=== PATIENT | female | born 1955 | race Caucasian/White ===

== ENCOUNTER 2019-10-22 02:34 | Emergency (ER) | payer MEDICARE, SELFPAY | END 2019-10-22 03:32 | disposition home or self-care (01) | PROVIDERS: Emergency Provider Emergency Medicine; Visit Provider Emergency Medicine | DX: M54.9 Dorsalgia, unspecified (principal); G89.29 Other chronic pain | CPT/HCPCS: J1885 ==

== ENCOUNTER 2020-02-09 02:45 | Emergency (ER) | payer MEDICARE, SELFPAY ==
--- NOTE | 2020-02-09 03:01 | ED_ITS ---
Entered by Natalie Scott, acting as scribe for Jeffrey Hirsch MD HPI - URI/Sore Throat General: Chief Complaint: Shortness of Breath/Dyspnea Stated Complaint: FLU SYMPTOMS Time Seen by Provider: 02/09/20 02:45 Source: patient Mode of arrival: ambulatory Limitations: no limitations History of Present Illness: HPI Narrative: 64 yo f came to the er pov for flu like symptoms. Onset was last friday. Pt states that she has a cough, fever, dizzy, headache and body aches. Pt said that she went to her doctors office and was tested for the flu and it was negative. She states she has had a continued nonproductive cough. Denies any vomiting. MD elicited complaint: fever, cough, sore throat and other Onset (ago): day(s) (last friday) Consistency: constant Severity: mild Able to tolerate fluids by mouth: Yes Exacerbating factors: nothing Relieving factors: nothing Context: sick contacts Associated symptoms: Reports chills, congestion, cough and fever(s); Deny abdominal pain, chest pain, diarrhea, headache(s), nausea or vomiting Treatments prior to arrival: none Review of Systems General: Reports: other (negative unless marked) Const: Reports: fever, chills and body aches Eyes: Denies: blurry vision or eye discomfort ENMT: Denies: throat pain or dental pain Card: Denies: chest pain Resp: Reports: non-productive cough GI: Denies: abdominal pain, nausea, vomiting or diarrhea : Denies: painful urination Musc: Denies: neck pain or back pain Skin/Breast: Denies: rash Neuro: Denies: headache Psych: Denies: depression [place]/Lymph: Denies: easy bruising All/Imm: Denies: hives PFSH ED PFSH: Social History Smoking and tobacco status: never smoked Physical Exam Const: COMMON NORMALS: no apparent distress, oriented x3 and healthy appearing HENMT: COMMON NORMALS: normocephalic and head/scalp atraumatic HEAD & SCALP: normocephalic and atraumatic Eye: COMMON NORMALS: PERRL and EOMs intact bilaterally PUPIL: Yes PERRL Neck/C-Spine: COMMON NORMALS: full ROM and supple Chest: COMMONS NORMALS: inspection of chest normal and palpation of chest normal Resp: COMMON NORMALS: normal respiratory effort, no retractions, no use of accessory muscles and clear to auscultation bilaterally AUSCULTATION: clear to auscultation bilaterally Cardio: COMMON NORMALS: regular rate, regular rhythm and no murmurs RATE: regular rate RHYTHM: regular rhythm GI: COMMON NORMALS: normal to inspection, nondistended, normoactive bowel sounds, soft to palpation, non-tender and no masses PALPATION: Yes soft Extremity: COMMON NORMALS: normal to inspection and full ROM Neuro: COMMON NORMALS: oriented x3, moves all extremities and no focal motor deficits Psych: COMMON NORMALS: mental status grossly normal, thought process normal and cooperative THOUGHT PROCESS: normal thought process Skin: COMMON NORMALS: no rashes or lesions noted and no wounds GENERAL SKIN EXAM: no rashes or lesions noted Course 2 Vital Signs: Vital signs: Vital Signs Temperature 99.5 F 02/09/20 03:03 Pulse Rate 89 02/09/20 03:03 Respiratory Rate 18 02/09/20 03:03 Blood Pressure 133/107 02/09/20 03:03 Pulse Oximetry 96 02/09/20 03:03 MDM - URI/Sore Throat MDM Narrative: Medical decision making narrative: Snehal presents here with cough and congestion is likely bronchitis. Her influenza was negative. Blood work and x-ray here negative as well. Will prescribe her an inhaler along with steroids and doxycycline. Patient is to follow-up with primary care doctor in 3 to 5 days and return to the ER if worsening. Patient understands and agrees to the plan. Lab Data: Labs: Lab Results 02/09/20 02/09/20 02/09/20 Range/Units 03:25 03:25 03:25 WBC 6.1 (4.0-10.0) 10^3/ uL RBC 4.92 (4.1-5.3) 10^6/u L Hgb 13.3 (11.5-15.3) g/dL Hct 42.0 (37.0-47.0) % MCV 85.4 (81-99) fL MCH 27.0 L (28.0-34.0) pg MCHC 31.7 (30.0-36.0) g/dL RDW 14.6 (12.1-15.1) % Plt Count 238 (130-400) 10^3/c mm MPV 10.6 H (7.4-10.4) fL Neut % (Auto) 72.0 % Lymph % (Auto) 15.2 % Lincoln % (Auto) 8.2 % Eos % (Auto) 3.6 % Baso % (Auto) 0.5 % Neut # (Auto) 4.4 (1.8-7.7) 10^3/u L Lymph # (Auto) 0.9 (0.8-4.8) 10^3/u L Lincoln # (Auto) 0.5 (0.2-0.9) 10^3/u L Eos # (Auto) 0.2 (0.0-0.8) 10^3/u L Baso # (Auto) 0.0 (0.0-0.1) 10^3/u L Nucleated RBC % (a uto) 0 % Nucleated RBCs # 0.0 /100WBC Sodium 137 (136-145) mmol/L Potassium 4.4 (3.5-5.1) mmol/L Chloride 100 (98-107) mmol/L Carbon Dioxide 25 (22-29) mmol/L Anion Gap 16.4 (5-19) BUN 13 (8-23) mg/dL Creatinine 0.7 (0.5-0.9) mg/dL GFR Calculation 84.2 L (90-130) mL/min Glucose 147 H (65-115) mg/dL Calculated Osmolal ity 283 L (285-295) mOsm/k g Calcium 9.0 (8.5-10.5) mg/dL Total Bilirubin 0.4 (0.15-1.2) mg/dL AST 31 (0-32) U/L ALT 37 H (0-33) U/L Alkaline Phosphata se 118 H (35-105) IU/L Total Protein 7.5 (6.6-8.7) g/dL Albumin 3.8 (3.5-5.2) g/dL Globulin 3.7 (1.3-4.6) g/dL Influenza Type A A g Negative (Negative) POC Influenza B Ag Negative (Negative) Imaging Data^: CXR: Attestation: I personally reviewed and interpreted this imaging study as follows: My impression: no acute abnormality Discharge Plan Discharge Patient Disposition: Home, Self-Care Clinical Impression: Bronchitis Condition: Stable Prescriptions: New prednisone 50 mg tablet 50 mg PO DAILY Qty: 5 RF: 0 albuterol sulfate 90 mcg/actuation HFA aerosol inhaler 2 inh INHALATION Q6H PRN (Reason: shortness of breath) Qty: 8 RF: 0 doxycycline hyclate 100 mg capsule 100 mg PO BID 7 Days Qty: 14 RF: 0 No Action metoprolol tartrate 25 mg tablet 25 mg PO BID Qty: 180 RF: 3 isosorbide mononitrate 60 mg tablet extended release 24 hr 60 mg PO QDAY Qty: 90 RF: 3 Discharge Orders: Discharge Order (Routine); Ordered 02/09/20 Ordered By: Jeffrey Hirsch Referrals: [facility] [Other] Discharge Diet: Advance as tolerated Discharge Activity: Resume usual activity Patient Instructions: Acute Bronchitis (ED) Coding Level of Care Code ED Production Internship for Chg Daniel The documentation recorded by the Tyler karimi Stephanie Lyn, accurately reflects the service I personally performed and the decisions made by Chaitanya amos Korby, MD Feb 09, 2020 02:45
[2020-02-09 03:03] VITALS: BP 133/107; PULSE 89; RESP 18; TEMP 37.5; O2SAT 96; BMI 39.1
--- NOTE | 2020-02-09 03:05 | XRR_ITS ---
PROCEDURE INFORMATION: Exam: XR Chest, 2 Views Exam date and time: 02/09/2020 3:30 AM Age: 64 years old Clinical indication: Cough and fever and shortness of breath; Additional info: Cough, fever, SOB x 3 days TECHNIQUE: Imaging protocol: XR of the chest Views: Frontal and lateral upright views. COMPARISON: CR Chest 2 views* [id number] 04/16/2019 7:33 AM FINDINGS: Lungs: Subtle left suprahilar infiltrate. The lungs are otherwise clear bilaterally. The pulmonary vasculature is normal. Pleural space: No pleural effusion. No pneumothorax. Heart/Mediastinum: The heart is normal in size and contour. Mediastinum: Stable. Bones/joints: Right lateral vertebral body marginal osteophytes are noted at multiple thoracic spinal levels. Other findings: The gallbladder is likely surgically absent, with metallic clips overlying the gallbladder fossa (lateral image). XR/XR chest 2V* [id number] IMPRESSION: 1. Subtle left suprahilar infiltrate. Pneumonitis is difficult to exclude. Clinical correlation is recommended. 2. Prior cholecystectomy.
[2020-02-09 03:43] LABS: Alanine Aminotransferase 37 U/L (0-33); Albumin Level 3.8 g/dL (3.5-5.2); Alkaline Phosphatase 118 IU/L (35-105); Anion Gap 16.4 (5-19); Aspartate Amino Transferase 31 U/L (0-32); Blood Urea Nitrogen 13 mg/dL (8-23); Carbon Dioxide 25 mmol/L (22-29); Chloride 100 mmol/L (98-107); Globulin 3.7 g/dL (1.3-4.6); Glomerular Filtration Rate 84.2 mL/min (90-130); Glucose 147 mg/dL (65-115); Osmolality Calculated 283 mOsm/kg (285-295); Potassium 4.4 mmol/L (3.5-5.1); Sodium 137 mmol/L (136-145); Total Bilirubin 0.4 mg/dL (0.15-1.2); Total Protein 7.5 g/dL (6.6-8.7)
[2020-02-09 03:45] LABS: Basophils % 0.5 %; Eosinophils # 0.2 10^3/uL (0.0-0.8); Eosinophils % 3.6 %; Hemoglobin 13.3 g/dL (11.5-15.3); Lymphocytes # 0.9 10^3/uL (0.8-4.8); Lymphocytes % 15.2 %; Mean Corpuscular HGB Conc 31.7 g/dL (30.0-36.0); Mean Corpuscular Volume 85.4 fL (81-99); Mean Platelet Volume 10.6 fL (7.4-10.4); Monocytes # 0.5 10^3/uL (0.2-0.9); Monocytes % 8.2 %; Neutrophils # 4.4 10^3/uL (1.8-7.7); Nucleated Red Blood Cells % 0 %; Platelet Count 238 10^3/cmm (130-400); Red Blood Count 4.92 10^6/uL (4.1-5.3); Red Cell Distribution Width 14.6 % (12.1-15.1); White Blood Count 6.1 10^3/uL (4.0-10.0)
[2020-02-09 03:48] LABS: Influenza A by IFA Negative (Negative); Influenza B by IFA Negative (Negative)
[2020-02-09] MEDS: acetaminophen 325 mg Tablet 650 MG PO (03:48)
[2020-02-09] MEDS: ketorolac 30 mg/mL INJ 15 MG IVP (03:49)
[2020-02-09] MEDS: sodium chloride 0.9% 1,000 ML 999 ML IV (03:50)
[2020-02-09] MEDS: predniSONE 20 mg Tablet 60 MG PO (04:12)
[2020-02-09] MEDS: doxycycline 100 mg Tablet PO (04:12)
[2020-02-09 04:34] VITALS: BP 134/78; PULSE 76; RESP 18; TEMP 37; O2SAT 97
== END 2020-02-09 04:37 | disposition home or self-care (01) ==
PROVIDERS: Emergency Provider Emergency Medicine
DX: J40 Bronchitis, not specified as acute or chronic (principal)
CPT/HCPCS: 12345; 71046; 80053; 85025; 87804; 96361; 96374; 96375; 99283; J1885; J7030; J7512

== ENCOUNTER → 2020-04-20 09:46 | Outpatient (BNVA) | payer MEDICARE, SELFPAY | PROVIDERS: Visit Provider Podiatrist Foot & Ankle Surgery | DX: M19.90 Unspecified osteoarthritis, unspecified site (principal); M21.41 Flat foot [pes planus] (acquired), right foot; M21.42 Flat foot [pes planus] (acquired), left foot; M79.671 Pain in right foot | CPT/HCPCS: 73630 ==

== ENCOUNTER → 2020-10-03 15:23 | Outpatient (BNVA) | payer MEDICARE, SELFPAY | PROVIDERS: Visit Provider Podiatrist Foot & Ankle Surgery | DX: M79.671 Pain in right foot (principal) | CPT/HCPCS: 73630 ==

== ENCOUNTER 2020-11-14 12:27 | Outpatient (CLI) | payer MEDICARE, SELFPAY ==
--- NOTE | 2020-11-14 12:38 | USCV_ITS ---
Snehal Edwards Age: 65 Gender: F : 1955 Exam Date: 11/14/2020 12:46 Ordering Phys: Víctor Freeman DO Technologist: Jerrell Villa [place]am Location[place] [facility] [place] Indication: bilateral leg pain claudication RIGHT LEFT Brachial 13.00 mmHg Brachial 151.00 mmHg Pressure (mmHg) Waveform Pressure (mmHg) Waveform 178.00 CHORUS MASTER 175.00 166.00 DPA 165.00 1.16 Ankle/Brachial Index 1.14 133.00 Pre-Exercise Toe Pressure 128.00 0.87 Pre-Exercise Toe/Brachial Index 0.84 FINDINGS Normal resting ABIs bilaterally Normal resting TBIs bilaterally CONCLUSIONS No evidence of any significant arterial obstruction, based on the above findings. Dr Suzan Ledbetter MD [facility] (Electronically Signed) Final Date: 14 November 2020 14:19 S
== END 2020-11-14 12:28 | disposition home or self-care (01) ==
LOC: RAD 12:29
PROVIDERS: PCP Electrodiagnostic Medicine; Visit Provider Electrodiagnostic Medicine
DX: M79.604 Pain in right leg (principal); M79.605 Pain in left leg
CPT/HCPCS: 93922

== ENCOUNTER 2021-02-08 13:58 | Outpatient (CLI) | payer MEDICARE, OTHER, SELFPAY ==
--- NOTE | 2021-02-08 14:22 | XR_ITS ---
WS: [id number] Right knee, 3 views, 02/08/2021 Clinical Data: KNEE PAIN, RIGHT Comparison: None. Findings: No fractures or dislocations are seen. The joint spaces are normal. The patella is intact. The soft t issues are unremarkable. XR/XR knee RT 3V* [id number] Impression: Negative right knee.
== END 2021-02-08 13:59 | disposition home or self-care (01) ==
PROVIDERS: PCP Electrodiagnostic Medicine; Visit Provider Electrodiagnostic Medicine
DX: M25.561 Pain in right knee (principal)
CPT/HCPCS: 73562

== ENCOUNTER 2021-03-05 07:59 | Outpatient (CLI) | payer MEDICARE, OTHER, SELFPAY ==
--- NOTE | 2021-03-05 08:14 | MR_ITS ---
WS: [id number] MRI RIGHT KNEE HISTORY: ACUTE TEAR MEDIAL MENISCUS/KNEE pain, RIGHT, ACUTE COMPARISON: RIGHT knee radiograph 02/08/2021 Anterior cruciate ligament: Mild thinning of the proximal third of the ACL. No complete tear. This ma y be an old injury. Posterior cruciate ligament: Intact. Medial collateral ligament: Small amount of increased fluid adjacent to the MCL but no tear. Posterior lateral corner structures: Intact. Medial menisci: Increased signal in the mid body of the meniscus. Increased signal extends obliquely through the meniscus and extends to at least to the inferior articular surface. This is probably a ra dial tear. Lateral meniscus: Intact. Normal signal, size and shape. Extensor mechanism: Distal quadriceps tendon and patellar tendons are intact. Fluid and soft tissue: Small suprapatellar joint effusion. There is a small amount of soft tissue jackelin ma surrounding the patella and anterior knee and the MCL. No Gordillo's cyst. Osseous and articular structures: Patellofemoral compartment: Normal. Medial compartment: Mild narrowing medial compartment with thinning and fissuring of the cartilage. I ncomplete defect in the cartilage along the medial portion of the femoral condyle. No marrow edema. Lateral compartment: Very mild narrowing of the lateral compartment with mild fissuring of the cartil age. No marrow edema. MR/MR knee RT wo con* [id number] IMPRESSION: 1. Tear involving the body of the medial meniscus, suspect this is a radial te ar extending to the inferior articular surface. 2. Small suprapatellar joint effusion. 3. No fracture or marrow edema. 4. Mild joint space narrowing with thinning and fissuring of the cartilage in the medial compartment.
== END 2021-03-05 08:00 | disposition home or self-care (01) ==
LOC: RADWPI 08:06
PROVIDERS: PCP Electrodiagnostic Medicine; Visit Provider Electrodiagnostic Medicine
DX: S83.249A Other tear of medial meniscus, current injury, unspecified knee, initial encounter (principal); X58.XXXA Exposure to other specified factors, initial encounter; M25.561 Pain in right knee; M25.461 Effusion, right knee
CPT/HCPCS: 73721

== ENCOUNTER 2021-03-21 12:10 | Outpatient (RCR) | payer MEDICARE, OTHER, SELFPAY | END 2021-03-30 23:59 | disposition home or self-care (01) | LOC: SPT 12:10 | PROVIDERS: PCP Electrodiagnostic Medicine; Referring Provider Orthopaedic Surgery; Visit Provider Orthopaedic Surgery | DX: M17.11 Unilateral primary osteoarthritis, right knee (principal) | CPT/HCPCS: 97032; 97110; 97161 ==

== ENCOUNTER 2021-03-31 06:00 | Outpatient (RCR) | payer MEDICARE, SELFPAY | END 2021-04-30 23:59 | disposition home or self-care (01) | LOC: SPT 06:00 | PROVIDERS: PCP Electrodiagnostic Medicine; Referring Provider Orthopaedic Surgery; Visit Provider Orthopaedic Surgery | DX: M17.11 Unilateral primary osteoarthritis, right knee (principal) | CPT/HCPCS: 97032; 97110; G0283 ==

== ENCOUNTER → 2021-04-20 08:48 | Outpatient (BNVA) | payer MEDICARE, OTHER, SELFPAY | PROVIDERS: PCP Electrodiagnostic Medicine; Visit Provider Orthopaedic Surgery | DX: Z01.812 Encounter for preprocedural laboratory examination (principal); Z20.822 Contact with and (suspected) exposure to COVID-19 | CPT/HCPCS: 87635 ==

== ENCOUNTER 2021-04-26 12:16 | Day surgery (SDC) | payer MEDICARE, OTHER, SELFPAY ==
[2021-04-25 15:42] VITALS: BMI 39.3
[2021-04-26] VITALS (10 sets, daily range): BP systolic 139–172; BP diastolic 60–92; PULSE 42–54; RESP 12–18; TEMP 36.3–36.7; O2SAT 95–100
--- NOTE | 2021-04-26 12:18 | ECG_ITS ---
[facility] Test Date: 2021-04-26 Pat Name: Snehal Edwards Department: Room: Gender: Female [employer]: : 1955 Requested By: Yobani Chavira Order Number: [id number] Angel MD: Paula Rutledge M.D. Measurements Intervals [place] Rate: 58 P: 25 MD: 198 QRS: 38 QRSD: 93 T: 11 QT: 428 QTc: 421 Interpretive Statements SINUS BRADYCARDIA Compared to ECG 10/27/2018 20:44:37 No significant changes Electronically Signed On 04-26-2021 18:32:55 CDT by Paula Rutledge M.D. [id number]
--- NOTE | 2021-04-26 12:48 | W.PM.OPSUD ---
Surgery/Procedure H&P Update DATE OF PROCEDURE: April 26, 2021 DATE H&P PERFORMED: 04/17/21 H&P UPDATE INFORMATION: I have reviewed H&P completed within last 30 days PREOP DIAGNOSIS: Knee Medial meniscal tear, chondromalacia right PLANNED PROCEDURE: Operation Date: 04/26/21 13:45 Proposed Procedures p right knee arthroscopy with medial meniscectomy 42068 M23.303(Right) - Yobani Chavira MD
--- NOTE | 2021-04-26 12:49 | PM.OP ---
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 She had flaps and fissures over the medial femoral condyle involving perhaps 50% of the thickness of the weightbearing area. She had central fissures in her trochlea perhaps involving 50% of the thickness of that area and fibrillation and fraying of the patella medially and laterally Condition: stable Disposition: PACU Brief History: Snehal was referred to me with nontraumatic onset pain in the right knee and an MRI showing medial meniscal tearing and degenerative changes. She failed conservative measures including anti-inflammatories and a program for physical therapy. She chose arthroscopic surgery to improve pain and function. She has been counseled to the limitations of arthroscopic surgery in the presence of degenerative change. Procedure: Snehal was taken to the operating room and given a general anesthesia. She is given 2 g of Ancef. She is prepped and draped in the supine position with a tourniquet on the right thigh. The tourniquet was never inflated. A timeout was performed. The knee was infiltrated with 30 cc of 0.5% Marcaine with epi and 4 mg of morphine. The knee was entered through a standard inferomedial and inferolateral portal. The diagnostic portion arthroscopy was performed revealing to the medial meniscal tear. Utilizing incisor shaver the central 50% of the posterior middle third of the medial meniscus were debrided back. The rim was then touched up with the [employer]hew Werewolf probe leaving approximately 50% of the meniscus remaining. Areas of fibrillated and frayed cartilage over the medial femoral condyle were dressed with light debridement with incisor shaver. The [employer]hew Werewolf probe was then used to further remove unstable tissue creating a smoother articular surface free of flaps. The lateral compartment is inspected and found to be healthy. Attention was then focused on the trochlea. The Arnold [employer]hew Werewolf cautery was used to debride flaps and fissures down to stable base. Attention was then focused on the patella. Utilizing the [employer]hew Werewolf probe unstable fibrillated tissue was debrided back. At no point was exposed subchondral bone identified however it was thought to cartilage loss involving approximately 50% of the medial femoral condyle trochlea and patella was all present. The knee was irrigated with saline. Portals were closed with 3-0 Prolene. Sterile dressings were applied. The patient was extubated taken to recovery in stable condition
[2021-04-26] MEDS: sodium chloride 0.9% 1,000 ML 30 ML IV (13:00)
--- NOTE | 2021-04-26 13:01 | ANES.PREANE2 ---
Pre-Anesthetic Assessment Pre-Anesthetic Assessment: Height/Weight: Height 1.63 m Weight 103.873 kg Preop Diagnosis: Knee Medial meniscal tear, chondromalacia right Proposed Procedure: Operation Date: 04/26/21 13:45 Proposed Procedures p right knee arthroscopy with medial meniscectomy 46484 M23.303(Right) - Yobani Chavira MD Familial anesthetic complications: none Was Beta Bettie taken within 24 hours: Yes Was Clonidine taken within 24 hours: N/A Last intake: Intake Last Liquid Date 04/25/21 Last Liquid Time 20:00 Last Solid Date 04/25/21 Last Solid Time 20:00 Last Intake: 20:00 Social: Social History: No alcohol and No tobacco Exam: Pre-Anes Outpt Exam: alert, oriented x 3, clear to auscultation bilaterally and regular rate & rhythm Airway: Submandibular: WNL Cervical ROM: WNL MP: 1 Dentition: False Pulmonary: Pulmonary: None reported CV/HEM: CV/HEM: CAD (small blockage in heart for [address] Ledbetter. 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
[2021-04-26] MEDS: morphine 4 mg/mL SDV 1 mL 8 MG IM (13:47)
[2021-04-26] MEDS: fentaNYL 50 mcg/mL INJ 2mL IVP (14:18)
--- NOTE | 2021-04-26 14:54 | ANE.PACU2 ---
Inpatient post-anesthesia follow up: Airway intact: Yes Vital signs: Temperature 98.0 F Pulse Rate 45 Respiratory Rate 12 Blood Pressure 139/75 Pulse Oximetry 96 Oxygen Delivery Me thod Room Air Oxygen Flow Rate 6 Fraction of Inspir ed Oxygen Hydration adequate: Yes Nausea and vomiting: No Pain level: 2 Mental status: Baseline
[2021-04-26] MEDS: HYDROcodone-acetaminophen 5-325 mg Tablet 1 TAB PO (15:15)
== END 2021-04-26 16:25 | disposition home or self-care (01) ==
PROVIDERS: PCP Electrodiagnostic Medicine; Visit Provider Orthopaedic Surgery
PROC: (CPT 29870; principal; 2021-04-26 13:35)
DX: S83.241A Other tear of medial meniscus, current injury, right knee, initial encounter (principal); X58.XXXA Exposure to other specified factors, initial encounter; I25.10 Atherosclerotic heart disease of native coronary artery without angina pectoris; K21.9 Gastro-esophageal reflux disease without esophagitis; E66.01 Morbid (severe) obesity due to excess calories; Z68.39 Body mass index [BMI] 39.0-39.9, adult; M19.90 Unspecified osteoarthritis, unspecified site; E78.5 Hyperlipidemia, unspecified; G47.30 Sleep apnea, unspecified; Z79.52 Long term (current) use of systemic steroids
CPT/HCPCS: 29881; 93005; J0690; J2270; J2405; J2704; J2710; J3010; J3490; J7030

== ENCOUNTER 2021-06-19 06:00 | Outpatient (RCR) | payer MEDICARE, SELFPAY | END 2021-06-30 23:59 | disposition home or self-care (01) | LOC: SPT 06:00 | PROVIDERS: PCP Electrodiagnostic Medicine; Referring Provider Orthopaedic Surgery; Visit Provider Orthopaedic Surgery | DX: Z47.89 Encounter for other orthopedic aftercare (principal) | CPT/HCPCS: 97110; 97161 ==

== ENCOUNTER 2021-07-01 06:00 | Outpatient (RCR) | payer MEDICARE, SELFPAY | END 2021-07-31 23:59 | disposition home or self-care (01) | LOC: SPT 06:00 | PROVIDERS: PCP Electrodiagnostic Medicine; Referring Provider Orthopaedic Surgery; Visit Provider Orthopaedic Surgery | DX: Z47.89 Encounter for other orthopedic aftercare (principal) | CPT/HCPCS: 97110 ==

== ENCOUNTER 2022-02-04 15:17 | Outpatient (CLI) | payer MEDICARE, OTHER, SELFPAY ==
--- NOTE | 2022-02-04 15:44 | XRR_ITS ---
PROCEDURE INFORMATION: Exam: XR Right Knee Exam date and time: 02/04/2022 3:44 PM Age: 66 years old Clinical indication: Swelling of the right lower leg with calf pain since yesterday. Query DVT? Acute medial meniscus. TECHNIQUE: Imaging protocol: XR Right knee. Views: 3 views. COMPARISON: MR knee RT wo con* [id number] 03/05/2021 8:22 AM FINDINGS: Bones/joints: Mild medial joint space narrowing. Spurs in the medial and patellofemoral compartments. No significant knee joint effusion. Patella baja; correlate for quadriceps dysfunction. No fracture, dislocation or subluxation. No periosteal reaction or supsicious bone lesion. No chondrocalcinosis is seen. Soft tissues: Soft tissue swelling is noted about the knee. XR/XR knee RT 3V* [id number] IMPRESSION: 1. Soft tissue swelling about the knee without evidence of acute fracture. 2. Mild primary osteoarthritis.
--- NOTE | 2022-02-04 15:44 | USCV_ITS ---
Snehal Edwards Age: 66 Gender: F : 1955 Exam Date: 02/04/2022 16:07 Ordering Phys: Víctor Freeman DO Technologist: IRAJ Exam Location: [facility] – [place] Indication: Leg swelling / pain HISTORY: Leg swelling / pain PROCEDURES: Venous duplex imaging was performed in only the right lower extremity. The following venous structures were evaluated: common femoral vein, profunda vein, proximal portion of the greater saphenous vein, superficial femoral vein, and the popliteal vein. In addition, the posterior tibial and peroneal trunk were evaluated. Serial compression, augmentation maneuvers, and spectral Doppler flow evaluation were performed. FINDINGS: Normal 2-D Doppler and augmentation and compressibility throughout the lower extremity venous structures. Additional imaging through the proximal calf veins also reveals no thrombus. Limited evaluation of the greater saphenous vein is patent with no thrombus.. CONCLUSIONS No evidence of right lower extremity DVT. Dov Otero MD (Electronically Signed) Final Date: 04 February 2022 17:07 S
== END 2022-02-04 15:18 | disposition home or self-care (01) ==
LOC: RAD 15:23
PROVIDERS: PCP Electrodiagnostic Medicine; Visit Provider Electrodiagnostic Medicine
DX: M79.89 Other specified soft tissue disorders (principal); M79.661 Pain in right lower leg; S83.249A Other tear of medial meniscus, current injury, unspecified knee, initial encounter; X58.XXXA Exposure to other specified factors, initial encounter; M17.11 Unilateral primary osteoarthritis, right knee
CPT/HCPCS: 73562; 93971

== ENCOUNTER 2022-03-12 06:41 | Outpatient (CLI) | payer MEDICARE, OTHER, SELFPAY ==
--- NOTE | 2022-03-12 | USCV_ITS ---
Snehal Edwards Age: 66 Gender: F : 1955 Exam Date: 03/12/2022 07:13 Ordering Phys: Víctor Freeman DO Technologist: Jerrell Villa Exam Location: [facility] – [place] Indication: AAA SCREENING HISTORY: Diameter (cm) AP x Transverse x Length Velocity (cm/s) Waveform Prox Aorta: 2.54 x 2.83 x 80.60 Mid Aorta: 1.52 x 1.96 x 73.00 Distal Aorta: 1.49 x 1.81 x 99.90 Right Iliac Prox: 0.69 x 1.23 x 103.10 Left Iliac Prox: 0.91 x 1.01 x 119.20 Stent Prox Landing x x Aneurysmal Sac Max x x Lt Lat Sac Dim Rt Lat Sac Dim Stent Dist Landing x x Right Iliac Stent x x Left Iliac Stent x x Right Renal Art Left Renal Art FINDINGS: Comparison: none available. No evidence of abdominal aortic or bilateral iliac aneurysm. Ectatic abdominal aorta with evidence of atherosclerotic plaque noted. Hepatic steatosis. CONCLUSIONS No evidence of abdominal aortic or bilateral iliac aneurysm. Dr. Dinorah Jaimes DO (Electronically Signed) Final Date: 12 March 2022 08:22 S
== END 2022-03-12 06:42 | disposition home or self-care (01) ==
LOC: RAD 06:44
PROVIDERS: PCP Electrodiagnostic Medicine; Visit Provider Electrodiagnostic Medicine
DX: Z13.6 Encounter for screening for cardiovascular disorders (principal)
CPT/HCPCS: 76706

== ENCOUNTER → 2022-07-11 10:42 | Outpatient (BNVA) | payer MEDICARE, OTHER, SELFPAY | PROVIDERS: PCP Family Medicine; Visit Provider Family Medicine | DX: Z00.00 Encounter for general adult medical examination without abnormal findings (principal); Z51.81 Encounter for therapeutic drug level monitoring; E03.9 Hypothyroidism, unspecified; R73.9 Hyperglycemia, unspecified; R30.0 Dysuria; Z23 Encounter for immunization; I10 Essential (primary) hypertension; Z96.651 Presence of right artificial knee joint | CPT/HCPCS: 81000; 87077; 87086; 87184 ==

== ENCOUNTER → 2022-07-12 09:20 | Outpatient (BNVA) | payer MEDICARE, OTHER, SELFPAY | PROVIDERS: PCP Family Medicine; Visit Provider Family Medicine | DX: I10 Essential (primary) hypertension (principal); E78.5 Hyperlipidemia, unspecified; Z51.81 Encounter for therapeutic drug level monitoring; E03.9 Hypothyroidism, unspecified; R73.9 Hyperglycemia, unspecified | CPT/HCPCS: 80053; 83036; 84439; 84443; 85025 ==

== ENCOUNTER → 2022-09-24 12:42 | Outpatient (BNVA) | payer MEDICARE, OTHER, SELFPAY | PROVIDERS: PCP Family Medicine; Visit Provider Internal Medicine Cardiovascular Disease | DX: I25.118 Atherosclerotic heart disease of native coronary artery with other forms of angina pectoris (principal); R73.03 Prediabetes; E78.5 Hyperlipidemia, unspecified; I10 Essential (primary) hypertension | CPT/HCPCS: 99213; 99214 ==

== ENCOUNTER 2022-09-30 15:49 | Outpatient (CLI) | payer MEDICARE, OTHER, SELFPAY ==
[2022-09-30 16:37] LABS: Basophils % 0.4 %; Eosinophils # 0.2 10^3/uL (0.0-0.8); Hematocrit 40.5 % (37.0-47.0); Hemoglobin 13.1 g/dL (11.5-15.3); Lymphocytes % 26.2 %; Mean Corpuscular HGB Conc 32.3 g/dL (30.0-36.0); Mean Corpuscular Hemoglobin 27.1 pg (28.0-34.0); Mean Corpuscular Volume 83.7 fl (81-99); Mean Platelet Volume 11.5 fL (7.4-10.4); Monocytes # 0.6 10^3/uL (0.2-0.9); Monocytes % 7.6 %; Neutrophils # 4.82 10^3/uL (1.8-7.7); Neutrophils % 63.4 %; Nucleated Red Blood Cells % 0 %; Platelet Count 256 10^3/cmm (130-400); Red Blood Count 4.84 10^6/uL (4.1-5.3); Red Cell Distribution Width 14.2 % (12.1-15.1); White Blood Count 7.6 10^3/uL (4.0-10.0)
[2022-09-30 16:59] LABS: INR 0.99 (0.83-1.21); Prothrombin Time (Patient) 13.4 Seconds (12.0-15.1)
[2022-09-30 17:00] LABS: Anion Gap 13.7 (5-19); Blood Urea Nitrogen 20 mg/dL (8-23); Calcium 9.3 mg/dL (8.5-10.5); Carbon Dioxide 28 mmol/L (22-29); Chloride 99 mmol/L (98-107); Glomerular Filtration Rate 83.5 mL/min (90-130); Glucose 123 mg/dL (65-115); Osmolality Calculated 288 mOsm/kg (285-295); Potassium 3.7 mmol/L (3.5-5.1); Sodium 137 mmol/L (136-145)
== END 2022-09-30 15:50 | disposition home or self-care (01) ==
LOC: LAB 15:55
PROVIDERS: PCP Family Medicine; Visit Provider Internal Medicine Cardiovascular Disease
DX: E78.5 Hyperlipidemia, unspecified (principal); I10 Essential (primary) hypertension; I25.118 Atherosclerotic heart disease of native coronary artery with other forms of angina pectoris
CPT/HCPCS: 80048; 85025; 85610

== ENCOUNTER 2022-10-01 05:57 | Outpatient (CLI) | payer MEDICARE, OTHER, SELFPAY ==
[2022-10-01] VITALS (19 sets, daily range): BP systolic 96–148; BP diastolic 48–89; PULSE 51–63; RESP 15–18; TEMP 36.6; O2SAT 93–96; BMI 39.1
--- NOTE | 2022-10-01 06:00 | XACV_ITS ---
Exam Room: 2 Ht: 163 cm Wt: 103 kg BSA: 2.21 m2 Gender: Female : 1955 Any Known Allergies: Other Exam Priority: Routine Procedure(s): Procedure Description: Diagnostic procedure Procedure Description: Left Heart Catheterization Procedure Description: Left ventriculography Procedure Description: Coronary Angiography Procedure Description: Pressure Wire Diagnostic Cath Status: Elective Diagnostic Findings * The left main is a medium caliber vessel with no significant stenotic lesions. * The left anterior descending artery is a medium caliber vessel which appears to wrap around the LV apex minimally. Mild diffuse intimal irregularities were noted throughout the vessel. No significant stenotic lesions were noted. The small diagonal branches are found to have 40 to 50% ostial narrowing. No significant stenotic lesions. The artery gives off a high diagonal branch which has a proximal around 50 to 60% napkin ring type of lesion. Intimal irregularities are noted in the proximal and mid segment of this artery. * The left circumflex artery is a medium caliber vessel which was found to have mild diffuse intimal irregularities proximally. It gives of a high obtuse marginal branch which was found to have diffuse 20 to 30% irregular narrowing in the proximal segment. No other stenotic lesions were noted.. * The right coronary artery is a medium caliber dominant vessel which was found to have no significant stenotic lesion. PCI Status: Elective Interventional Findings * IFR of the ramus intermedius lesions is 0.99. The transducer was placed past the second small apple core lesion. Conclusions 1. 67-year-old white female with multiple risk factors for coronary artery disease, presented with increasing episodes of chest pain. She had angiograms in the past which revealed mild coronary artery disease. She did not want to go through stress testings. For further evaluation of her symptoms, cardiac evaluation was performed. Patient underwent left heart catheterization with left and right coronary angiogram and LV angiogram today. The findings are as follows. 2. #1. No significant disease in the left main. #2 high diagonal branch of the left anterior descending artery was found to have around 50 to 60% napkin ring type of lesion proximally. Mild diffuse disease in the left and descending artery. #3 . The left circumflex artery was found to have 20 to 30% diffuse irregular narrowing in the proximal segment of the first obtuse marginal artery. 4. No significant stenotic lesions in the right coronary artery. Normal LV ejection fraction 55%. Evidence of left-ventricular diastolic dysfunction with an LVEDP of 21 mmHg. 3. Based on level angiographic findings, it was thought to be appropriate to do a IFR on the lesion in the high diagonal artery. I discussed and reviewed the cardiac catheterization data with the Dr. Lara who concurred with this plan. Dr. Lara took over further management of this patient at this point. The lesion was found to be not significant hemodynamically. For the details, please refer to the report by Dr. Lara. Diagnostic RX Recommendation: medical therapy and/or counseling Ventriculography Ejection Fraction: 55.0 % LV EDP: 21 mmHg Left Ventriculography Findings: * The LV gram was performed in the MYERS projection. The LV cavity appeared to be normal size. The overall LV ejection fraction was around 55%. There is no filling defects. No significant mitral valve prolapse or mitral regurgitation. The LVEDP was 21 mmHg. Pressures Phase:Rest AO : 88 / 55 ( 70 ) @ 7:28:00 AM 87 / 53 ( 68 ) @ 7:31:00 AM 126 / 61 ( 89 ) @ 7:41:00 AM 124 / 61 ( 89 ) @ 7:41:00 AM 125 / 50 ( 80 ) @ 7:52:00 AM LV : 113 / 14 / 21 @ 7:38:00 AM 118 / 19 / 24 @ 7:39:00 AM 114 / / 24 @ 7:41:00 AM 112 / 14 / 21 @ 7:41:00 AM Valves Phase:DefaultPhase AV : 0.0 @ 8:09:05 AM 0.0 @ 8:09:05 AM AV Mean Gradient: 0.0 @ 8:09:05 AM 0.0 @ 8:09:05 AM Clinical Evaluation EBL: 5mL-10mL Procedural Details Procedure Consent Obtained. Current Diagnosis : Chest Pain. Pre-Procedure Time Out. Identified patient by full name and date of as verbalized by the patient/guarantor. Does the consent match the physician's order: Yes. Accurate & Complete Informed Consent: Yes. Inpatient/Outpatient History & Physical on Chart: Yes. If H&P is completed, is and addenduem needed: No; If yes, is the addendum complete: N/A. Visualize and Verify Site with Patient/Guarantor: N/A. Relevant Radiology Images available: Yes. Pre-op teaching completed and patient verbalized understanding. The risks, benefits, and alternatives of sedation and/or procedure were discussed by physician. The patient agrees to continue. Procedure started. [facility] Clinical Fraility Score: 2: Well. [employer] Indications: Suspected CAD. Chest Pain Symptom Assessment: Atypical Angina. Correct patient, site and procedure confirmed by cath team. Current diagnosis: Chest Pain. PERRLA. Strong, equal hand breastfeeding peer counselor bilaterally. Lungs clear x 5 lobes. IV Site on Arrival: 20 gauge in the right anticubital. IV Fluids: 0.9% NaCl at KVO. 0 mL infused prior to laborer golf course. Pre Procedural Pulses: bilateral dorsalis pedis was 2+. Pre Procedural Pulses: bilateral posterior tibial was 2+. Pre Procedural Pulses: bilateral radial was 3+. Oxygen started at 2liters/min via nasal canula. right groin was prepped with chloroprep then draped in the usual sterile fashion. right radial was prepped with chloroprep then draped in the usual sterile fashion. Baseline sample Acquired. HR: 53 BPM. Physician arrived. Physician scrubbed in. Immediate Pre-Procedure Time Out. Correct Patient: Yes; Correct Procedure: Yes; Correct Site: Yes; Correct Patient Position: Yes; Correct Supplies: Yes; Dried Flammable Prep: Yes; Blood Products Available: N/A;. Lidocaine 1% infiltrated to the right radial. Arterial access obtained. A 5 ukrainian Jones catheter in over wire. Multiple views taken of left coronary artery. Catheter redirected to the RCA. Multiple views taken of right coronary artery. Catheter removed over the exchange wire. A 5 ukrainian Angled Pig catheter in over wire. Dr. Lara arrived to review films. EDP Sample taken: LV 113/14,21; HR: 56 BPM; SpO2: 97%. EDP Sample taken: LV 118/19,24; HR: 55 BPM; SpO2: 98%. LV gram performed in MYERS @ 10 mL/second for a total of 30 mL. EDP Sample taken: LV 114/21,24; HR: 59 BPM; SpO2: 97%. Pullback taken: LV 112/14,21; AO 126/61(89); Mean: 0mmHg, Peak to Peak: 0mmHg, SEP: 5sec/min; HR: 58 BPM; SpO2: 98%. Catheter removed over the exchange wire. Dr. Ledbetter scrubbed out. Dr. Lara scrubbed in. 6 ukrainian XB 3 guide catheter was inserted over the wire. IFR guidewire was advanced through the guide catheter to lesion in the Ramus. Fractional flow reserve measurements obtained. Result: 0.99. Wire out. Guide catheter out. A TR Band was successful obtaining hemostatsis at the Right Radial artery insertion site. Post Procedure: Pulses reassessed and unchanged. PERRLA. Strong, equal hand breastfeeding peer counselor bilaterally. No VTE prophylaxis required. Medication's Wasted: Lidocaine 1% = 4 mL. Medication's Wasted: Nitro = 49.8 mg. Medication's Wasted: Heparin = 1000 units. Medication's Wasted: Other = Versed 1 mg. Total IV fluids: 297 mL. Post-op diagnosis: Chest Pain. Complications: None. Estimated blood loss: 5mL-10mL. Responsiveness - Normal response to verbal stimuli; alert and oriented, PERRLA. Airway - Unaffected, no intervention required; spontaneous ventilation. Circulation: W/N/L, pulses unchanged. Nausea/Vomiting: No. Procedure completed. Vital chart was stopped. Patient transferred by wheelchair to CPRU. Access Site Site: Right Radial artery Sheath Size: 6 Fr Hemostasis Method: TR Band Hemostasis Success: Successful Procedure Medications Start: 7:10 AM Stop: 7:10 AM Medication: Versed Amount: 1 mg Route: I.V. Start: 7:10 AM Stop: 7:10 AM Medication: Fentanyl Amount: 50 mcg Route: I.V. Start: 7:22 AM Stop: 7: AM Medication: Versed Amount: 1 mg Route: I.V. Start: 7:24 AM Stop: 7:24 AM Medication: Verapamil Amount: 5 mg Route: I.A. Start: 7:24 AM Stop: 7:24 AM Medication: Nitrogylcerin Amount: 200 mcg Route: I.A. Start: 7:25 AM Stop: 7:25 AM Medication: 0.9% Saline Amount: 250 ml Route: I.V. bolus Start: 7:26 AM Stop: 7:26 AM Medication: Fentanyl Amount: 25 mcg Route: I.V. Start: 7:27 AM Stop: 7:27 AM Medication: Heparin Amount: 5000 units Route: I.V. Start: 7:50 AM Stop: 7:50 AM Medication: Versed 1 mg and Fentanyl 25 mcg Amount: 1 Route: I.V. I, the attending physician, have reviewed and verified all procedure medications. Yes, all medications given per verbal order History/Risk Factors Hypertension: Yes Dyslipidemia: Yes Peripheral Arterial Disease (PAD): No Myocardial Infarction (MS): No Obesity: Yes Renal Disease: No Tobacco Use: Never Prior Interventions PCI: No CABG: No Valve Surgery: No Report Signatures Diagnostic Workflow Finalized by Dr Suzan Ledbetter MD [facility] on 10/02/2022 10:04 AM Interventional Workflow Finalized by Dr. Jimmy Lara MD on 10/01/2022 08:12 AM
[2022-10-01] MEDS: diphenhydrAMINE 50 mg Capsule PO (06:31)
--- NOTE | 2022-10-01 07:05 | W.PM.OPSUD ---
Surgery/Procedure H&P Update DATE OF PROCEDURE: October 01, 2022 DATE H&P PERFORMED: 10/01/22 H&P UPDATE INFORMATION: I have reviewed H&P completed within last 30 days, I have examined patient prior to procedure and No changes to prior documentation PREOP DIAGNOSIS: suspected CAD PRIMARY INDICATION FOR PROCEDURE: chest pain/ multiple risk factors for CAD PLANNED PROCEDURE: Operation Date: 10/01/22 07:00 Proposed Procedures p 9458 Left Heart Cath I20.8(Not Applicable) - Suzan Ledbetter MD PATIENT REASSESSED PRIOR TO SEDATION, WITH NO CHANGE NOTED: Yes PHYSICAL EXAM: alert, oriented x 3, clear to auscultation bilaterally and regular rate & rhythm AIRWAY EVAL/ANESTHESIA PLAN: normal airway, see other exam findings, ASA II, Monitored Anesthesia, Local Anesthesia, Risks, benefits & alternatives of sedation and/or procedure discussed and Patient agrees to continue as planned
--- NOTE | 2022-10-01 08:15 | SUR.PHASEII ---
POST CATH NOTE/RECOVERY NOTE Received patient from Medical Physiologist- status post cardiac catheterization via the right radial approach. TR Band in place- no hematoma formation noted. Verbal post cath instructions went over with the patient and family- verbalized understanding. Call light in reach. Informed to call for needs.
--- NOTE | 2022-10-01 09:05 | SUR.PHASEII ---
POST OP FLUID ORDERS IV 0.9% NS INFUSING AT 75 ML/HR ORDERED VERBALLY FROM DR FITZGERALD UNTIL DISCHARGE.
== END 2022-10-01 12:46 | disposition home or self-care (01) ==
PROVIDERS: Internal Medicine Cardiovascular Disease; PCP Family Medicine; Visit Provider Internal Medicine Cardiovascular Disease
DX: I25.10 Atherosclerotic heart disease of native coronary artery without angina pectoris (principal); I10 Essential (primary) hypertension; E78.5 Hyperlipidemia, unspecified; E66.9 Obesity, unspecified; G47.30 Sleep apnea, unspecified; I25.118 Atherosclerotic heart disease of native coronary artery with other forms of angina pectoris
CPT/HCPCS: 36415; 80048; 85025; 85610; 86850; 86900; 93458; 93571; 96360; 96361; 99152; 99153; C1769; C1887; C1894; J1644; J2250; J3010; J3490; J7030; Q0163; Q9967

== ENCOUNTER → 2022-10-16 13:44 | Outpatient (BNVA) | payer MEDICARE, OTHER, SELFPAY | PROVIDERS: PCP Family Medicine; Visit Provider Nurse Practitioner Family | DX: I25.118 Atherosclerotic heart disease of native coronary artery with other forms of angina pectoris (principal); I10 Essential (primary) hypertension | CPT/HCPCS: 36415; 80048; 99214 ==

== ENCOUNTER → 2022-11-15 12:20 | Outpatient (BNVA) | payer MEDICARE, OTHER, SELFPAY | PROVIDERS: PCP Family Medicine; Visit Provider Family Medicine | DX: B34.9 Viral infection, unspecified (principal) | CPT/HCPCS: 87400; 87426 ==

== ENCOUNTER → 2023-02-12 15:38 | Outpatient (BNVA) | payer MEDICARE, SELFPAY | PROVIDERS: PCP Family Medicine; Visit Provider Internal Medicine Cardiovascular Disease | DX: I25.118 Atherosclerotic heart disease of native coronary artery with other forms of angina pectoris (principal); E78.5 Hyperlipidemia, unspecified; E03.9 Hypothyroidism, unspecified; I10 Essential (primary) hypertension | CPT/HCPCS: 99214 ==

== ENCOUNTER 2023-04-01 14:45 | Outpatient (CLI) | payer MEDICARE, SELFPAY ==
--- NOTE | 2023-04-01 15:00 | USCV_ITS ---
GraceSnehal tsang Age: 67 Gender: F : 1955 Exam Date: 04/01/2023 15:08 Ordering Phys: Onel Castellano NP Technologist: DEBORAH [place] [facility] [place]: rt leg pain and swelling PROCEDURES: Venous duplex imaging was performed in only the right lower extremity. The following venous structures were evaluated: common femoral vein, profunda vein, proximal portion of the greater saphenous vein, superficial femoral vein, and the popliteal vein. In addition, the posterior tibial and peroneal trunk were evaluated. FINDINGS: Normal 2-D Doppler and augmentation and compressibility throughout the lower extremity venous structures. Additional imaging through the proximal calf veins also reveals no thrombus. Limited evaluation of the greater saphenous vein is patent with no thrombus. CONCLUSIONS No DVT right lower extremity. Dr. Dinorah Jaimes DO (Electronically Signed) Final Date: 01 Apr 2023 15:47 S
== END 2023-04-01 14:46 | disposition home or self-care (01) ==
PROVIDERS: PCP Family Medicine; Visit Provider Clinical Nurse Specialist Adult Health
DX: M79.604 Pain in right leg (principal); R60.0 Localized edema
CPT/HCPCS: 93971

== ENCOUNTER → 2023-06-18 10:25 | Outpatient (BNVA) | payer MEDICARE, SELFPAY | PROVIDERS: PCP Family Medicine; Visit Provider Nurse Practitioner Family | DX: M79.671 Pain in right foot (principal) | CPT/HCPCS: 73630 ==

== ENCOUNTER → 2023-07-07 10:59 | Outpatient (BNVA) | payer MEDICARE, SELFPAY | PROVIDERS: PCP Family Medicine; Visit Provider Podiatrist Foot & Ankle Surgery | DX: S99.921A Unspecified injury of right foot, initial encounter; X58.XXXA Exposure to other specified factors, initial encounter | CPT/HCPCS: 73630; 99203 ==

== ENCOUNTER → 2023-08-20 17:24 | Outpatient (BNVA) | payer MEDICARE, SELFPAY | PROVIDERS: PCP Family Medicine; Visit Provider Internal Medicine Cardiovascular Disease | DX: R06.02 Shortness of breath (principal); I10 Essential (primary) hypertension | CPT/HCPCS: 36415; 80048; 83880; 99214 ==

== ENCOUNTER → 2023-11-12 10:47 | Outpatient (BNVA) | payer MEDICARE, SELFPAY | PROVIDERS: PCP Family Medicine; Visit Provider Family Medicine | DX: R25.2 Cramp and spasm (principal); E78.5 Hyperlipidemia, unspecified; E03.9 Hypothyroidism, unspecified; E11.9 Type 2 diabetes mellitus without complications; Z51.81 Encounter for therapeutic drug level monitoring; Z13.220 Encounter for screening for lipoid disorders; R73.03 Prediabetes; M54.50 Low back pain, unspecified | CPT/HCPCS: 80053; 80061; 83036; 83735; 84439; 84443; 85025 ==

== ENCOUNTER 2023-11-19 08:44 | Outpatient (CLI) | payer MEDICARE, SELFPAY ==
--- NOTE | 2023-11-19 08:47 | MM_ITS ---
WS: [id number] SCREENING DIGITAL TOMOSYNTHESIS MAMMOGRAM WITH CAD HISTORY: Z12.39 - Encounter for other screening for malignant neop... COMPARISON: 10/18/2015 Bilateral CC and MLO with tomosynthesis views submitted. Synthetic mammography reviewed. Computer aid ed detection analyzed. Breast composition: There are scattered areas of fibroglandular density. No suspicious masses, microc alcifications or architectural distortion. IMPRESSION: MM/[place] [id number] BI-RADS: 1-Negative FOLLOW UP: 1 Year Follow-up
== END 2023-11-19 08:45 | disposition home or self-care (01) ==
LOC: RAD 08:44
PROVIDERS: PCP Family Medicine; Visit Provider Family Medicine
DX: Z12.31 Encounter for screening mammogram for malignant neoplasm of breast
CPT/HCPCS: 77063; 77067

== ENCOUNTER → 2024-02-05 13:42 | Outpatient (BNVA) | payer MEDICARE, SELFPAY | PROVIDERS: PCP Family Medicine; Visit Provider Family Medicine | DX: R32 Unspecified urinary incontinence | CPT/HCPCS: 81000; 87077; 87086; 87184 ==

== ENCOUNTER → 2024-03-18 15:19 | Outpatient (BNVA) | payer MEDICARE, SELFPAY | PROVIDERS: PCP Family Medicine; Visit Provider Internal Medicine Cardiovascular Disease | DX: R07.9 Chest pain, unspecified (principal); R00.1 Bradycardia, unspecified; I25.118 Atherosclerotic heart disease of native coronary artery with other forms of angina pectoris; I10 Essential (primary) hypertension; E78.5 Hyperlipidemia, unspecified; E03.8 Other specified hypothyroidism; R06.02 Shortness of breath | CPT/HCPCS: 93005; 99214 ==

== ENCOUNTER → 2024-05-11 10:05 | Outpatient (BNVA) | payer MEDICARE, SELFPAY | PROVIDERS: PCP Family Medicine; Visit Provider Family Medicine | DX: R30.0 Dysuria (principal); R32 Unspecified urinary incontinence; E11.9 Type 2 diabetes mellitus without complications; Z51.81 Encounter for therapeutic drug level monitoring | CPT/HCPCS: 80053; 81000; 83036; 85025; 87086 ==

== ENCOUNTER → 2024-06-07 12:16 | Outpatient (BNVA) | payer MEDICARE, SELFPAY | PROVIDERS: PCP Family Medicine; Visit Provider Family Medicine | DX: R30.0 Dysuria | CPT/HCPCS: 81000; 87086 ==

== ENCOUNTER → 2024-08-10 14:40 | Outpatient (BNVA) | payer MEDICARE, SELFPAY | PROVIDERS: PCP Family Medicine; Visit Provider Family Medicine | DX: R30.0 Dysuria (principal) | CPT/HCPCS: 81000; 87086 ==

== ENCOUNTER 2024-09-03 07:36 | Outpatient (CLI) | payer MEDICARE, SELFPAY ==
--- NOTE | 2024-09-03 07:45 | US_ITS ---
WS: [id number] RENAL ULTRASOUND URINARY BLADDER ULTRASOUND HISTORY: Frequent UTI/pyelonephritis - With pre/post void residual COMPARISON: None available. TECHNIQUE: 2-D and color Doppler imaging of the kidney submitted. Right kidney: 10.1 cm x 5.2 cm x 4.4 cm. Normal echogenicity with no hydronephrosis or mass. Left kidney: 11.2 cm x 5.1 cm x 4.7 cm. Normal echogenicity with no hydronephrosis or mass. Aorta: Normal. Urinary Bladder: Only minimally distended bladder. Prevoid volume 62 mL. Post void volume 2 mL. US/US renal BI with PV bladder IMPRESSION: 1. Unremarkable renal ultrasound. No hydronephrosis. 2. No significant post void residual in the urinary bladder.
== END 2024-09-03 07:37 | disposition home or self-care (01) ==
LOC: RAD 07:37
PROVIDERS: PCP Family Medicine; Visit Provider Family Medicine
DX: N12 Tubulo-interstitial nephritis, not specified as acute or chronic (principal)
CPT/HCPCS: 76770; 76857

== ENCOUNTER 2024-09-30 16:54 | Outpatient (CLI) | payer MEDICARE, SELFPAY ==
--- NOTE | 2024-09-30 16:58 | XRR_ITS ---
PROCEDURE INFORMATION: Exam: XR Right Foot Exam date and time: 09/30/2024 5:01 PM Age: 69 years old Clinical indication: Pain; Foot; Right; Additional info: Foot pain TECHNIQUE: Imaging protocol: Radiologic exam of the right foot. Views: 3 or more views. COMPARISON: CR XR foot RT min 3V* [id number] 07/07/2023 11:03 AM FINDINGS: Bones/joints: There are degenerative changes of the midfoot and tarsometatarsal joints. There is no evidence of acute fracture or dislocation. There is mild posterior and plantar calcaneal spurring. Alignment of the foot is within normal limits. Soft tissues: Normal. XR/XR foot RT min 3V* [id number] IMPRESSION: 1. No acute osseous abnormality. 2. Degenerative changes of the midfoot and tarsometatarsal joints
== END 2024-09-30 16:55 | disposition home or self-care (01) ==
LOC: RAD 16:56
PROVIDERS: PCP Family Medicine; Visit Provider Family Medicine
DX: M19.071 Primary osteoarthritis, right ankle and foot (principal)
CPT/HCPCS: 73630

== ENCOUNTER → 2024-10-06 09:10 | Outpatient (BNVA) | payer MEDICARE, SELFPAY | PROVIDERS: PCP Family Medicine; Visit Provider Podiatrist Foot & Ankle Surgery | DX: M77.41 Metatarsalgia, right foot (principal); M77.42 Metatarsalgia, left foot; M79.671 Pain in right foot; S96.911A Strain of unspecified muscle and tendon at ankle and foot level, right foot, initial encounter; X58.XXXA Exposure to other specified factors, initial encounter; E11.9 Type 2 diabetes mellitus without complications; M79.604 Pain in right leg; Z79.84 Long term (current) use of oral hypoglycemic drugs | CPT/HCPCS: 73630; 99203 ==

== ENCOUNTER → 2024-10-21 14:52 | Outpatient (BNVA) | payer MEDICARE, SELFPAY | PROVIDERS: PCP Family Medicine; Visit Provider Student in an Organized Health Care Education/Training Program | DX: M25.561 Pain in right knee (principal); Z96.651 Presence of right artificial knee joint; R03.0 Elevated blood-pressure reading, without diagnosis of hypertension | CPT/HCPCS: 73560; 73565; 99203 ==

== ENCOUNTER 2024-10-26 11:15 | Outpatient (CLI) | payer MEDICARE, SELFPAY ==
--- NOTE | 2024-10-26 11:45 | MRR_ITS ---
PROCEDURE INFORMATION: Exam: MR Right Lower Extremity Joint Without Contrast; Ankle Exam date and time: 10/26/2024 11:57 AM Age: 69 years old Clinical indication: Ankle; Right; Patient HX: Chronic worsening pain, no known injury; Additional info: R ankle tendon tear TECHNIQUE: Imaging protocol: Magnetic resonance imaging of the right lower extremity without contrast. Exam focused on the ankle. COMPARISON: CR XR foot RT min 3V* [id number] 10/06/2024 9:26 AM FINDINGS: Bones/joints: Normal osseous alignment. No acute fracture. Moderate posterior and mild plantar calcaneal enthesophyte formation is identified. Small osteophytes are noted at the midfoot and 2nd and 3rd tarsometatarsal articulations. Mild bone marrow edema in the proximal aspect of the visualized 2nd through 4th metatarsals is present. There is mild bone marrow edema within the middle and lateral cuneiforms. LIGAMENTS: Distal tibiofibular syndesmosis: Unremarkable. No tear. Anterior talofibular ligament: An attenuated size of the anterior talofibular ligament is identified, without a definite complete tear. Posterior talofibular ligament: Unremarkable. No tear. Calcaneofibular ligament: Unremarkable. No tear. Deltoid ligament complex: Unremarkable. No tear. TENDONS: Flexor tendons of foot: Unremarkable as visualized. Tibialis posterior tendon: Unremarkable as visualized. Peroneal tendons: Moderate intrasubstance/longitudinal tearing of the proximal to mid peroneus brevis tendon is identified. Extensor tendons of foot: Unremarkable as visualized. Tibialis anterior tendon: Unremarkable as visualized. Achilles tendon: Unremarkable as visualized. Tarsal canal (Sinus tarsi): Unremarkable. Tarsal tunnel: Unremarkable. Soft tissues: A mild degree of diffuse subcutaneous edema is present. Plantar fascia: Abnormal fusiform thickening of the proximal plantar fascial central bundle fibers is noted, with moderate partial-thickness tearing. MR/MR ankle RT wo con* [id number] IMPRESSION: 1. Moderate intrasubstance/longitudinal tearing of the peroneus brevis tendon. 2. Probable partial tear of the anterior talofibular ligament. 3. Plantar fasciitis, with moderate partial-thickness tearing of the proximal fibers of the central bundle. 4. 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 5. Mild bone marrow edema in the proximal 2nd through 4th metatarsals and the middle and lateral cuneiforms may be degenerative in nature or related to bone contusions or stress changes.
== END 2024-10-26 11:16 | disposition home or self-care (01) ==
LOC: RAD 11:16
PROVIDERS: PCP Family Medicine; Visit Provider Podiatrist Foot & Ankle Surgery
DX: S86.391A Other injury of muscle(s) and tendon(s) of peroneal muscle group at lower leg level, right leg, initial encounter (principal); M72.2 Plantar fascial fibromatosis; M19.071 Primary osteoarthritis, right ankle and foot; X58.XXXA Exposure to other specified factors, initial encounter
CPT/HCPCS: 73721

== ENCOUNTER → 2024-10-27 08:58 | Outpatient (BNVA) | payer MEDICARE, SELFPAY | PROVIDERS: PCP Family Medicine; Visit Provider Podiatrist Foot & Ankle Surgery | DX: E11.9 Type 2 diabetes mellitus without complications; M79.604 Pain in right leg; S96.911A Strain of unspecified muscle and tendon at ankle and foot level, right foot, initial encounter; X58.XXXA Exposure to other specified factors, initial encounter; Z79.84 Long term (current) use of oral hypoglycemic drugs | CPT/HCPCS: 99213 ==

== ENCOUNTER 2024-11-19 14:36 | Outpatient (CLI) | payer MEDICARE, SELFPAY ==
--- NOTE | 2024-11-19 15:00 | USCV_ITS ---
Snehal Edwards Age: 69 Gender: F : 1955 Exam Date: 11/19/2024 15:21 Ordering Phys: Negro Lu MD Technologist: USR [place] [facility] [place]: Right leg pain and swelling PROCEDURES: Venous duplex imaging was performed in only the right lower extremity. The following venous structures were evaluated: common femoral vein, profunda vein, proximal portion of the greater saphenous vein, superficial femoral vein, and the popliteal vein. In addition, the posterior tibial and peroneal trunk were evaluated. FINDINGS: No evidence of DVT seen in any vessel visualized at this time. CONCLUSIONS No evidence of right lower extremity DVT. Dov Otero MD (Electronically Signed) Final Date: 19 November 2024 16:08 S
== END 2024-11-19 14:37 | disposition home or self-care (01) ==
LOC: RAD 14:37
PROVIDERS: PCP Family Medicine; Visit Provider Family Medicine
DX: M79.604 Pain in right leg (principal); R22.41 Localized swelling, mass and lump, right lower limb
CPT/HCPCS: 93971

== ENCOUNTER → 2025-05-24 08:33 | Outpatient (BNVA) | payer MEDICARE, SELFPAY | PROVIDERS: PCP Family Medicine; Visit Provider Family Medicine | DX: Z00.00 Encounter for general adult medical examination without abnormal findings (principal); E11.9 Type 2 diabetes mellitus without complications; E03.9 Hypothyroidism, unspecified; Z13.6 Encounter for screening for cardiovascular disorders; E55.9 Vitamin D deficiency, unspecified; Z51.81 Encounter for therapeutic drug level monitoring | CPT/HCPCS: 80053; 80061; 82306; 83036; 84439; 84443; 85025 ==

== ENCOUNTER → 2025-06-30 08:15 | Outpatient (BNVA) | payer MEDICARE, SELFPAY | PROVIDERS: PCP Family Medicine; Visit Provider Podiatrist Foot & Ankle Surgery | DX: M19.071 Primary osteoarthritis, right ankle and foot (principal); S92.352A Displaced fracture of fifth metatarsal bone, left foot, initial encounter for closed fracture; E11.9 Type 2 diabetes mellitus without complications; X58.XXXA Exposure to other specified factors, initial encounter | CPT/HCPCS: 73610 ==

== ENCOUNTER 2025-06-30 09:45 | Outpatient (CLI) | payer MEDICARE, SELFPAY | END 2025-06-30 09:46 | PROVIDERS: PCP Family Medicine; Visit Provider Podiatrist Foot & Ankle Surgery | DX: Z46.89 Encounter for fitting and adjustment of other specified devices (principal); M25.572 Pain in left ankle and joints of left foot | CPT/HCPCS: L1902 ==

== ENCOUNTER → 2025-07-28 07:20 | Outpatient (BNVA) | payer MEDICARE, SELFPAY | PROVIDERS: PCP Family Medicine; Visit Provider Podiatrist Foot & Ankle Surgery | DX: E11.9 Type 2 diabetes mellitus without complications (principal); M19.072 Primary osteoarthritis, left ankle and foot; S92.352A Displaced fracture of fifth metatarsal bone, left foot, initial encounter for closed fracture; M72.2 Plantar fascial fibromatosis; X58.XXXA Exposure to other specified factors, initial encounter; Z79.84 Long term (current) use of oral hypoglycemic drugs | CPT/HCPCS: 99213 ==

== ENCOUNTER → 2025-08-12 13:10 | Outpatient (BNVA) | payer MEDICARE, SELFPAY | PROVIDERS: PCP Family Medicine; Visit Provider Family Medicine | DX: R30.0 Dysuria (principal); N39.0 Urinary tract infection, site not specified | CPT/HCPCS: 81000; 87086 ==

== ENCOUNTER → 2025-08-15 11:42 | Outpatient (BNVA) | payer MEDICARE, SELFPAY | PROVIDERS: PCP Family Medicine; Visit Provider Internal Medicine Cardiovascular Disease | DX: I25.118 Atherosclerotic heart disease of native coronary artery with other forms of angina pectoris (principal); M65.811 Other synovitis and tenosynovitis, right shoulder; M19.011 Primary osteoarthritis, right shoulder; I10 Essential (primary) hypertension; E78.5 Hyperlipidemia, unspecified; E03.9 Hypothyroidism, unspecified; Z98.61 Coronary angioplasty status; R07.9 Chest pain, unspecified | CPT/HCPCS: 73030; 93005; 99214 ==

== ENCOUNTER 2025-08-25 09:32 | Outpatient (CLI) | payer MEDICARE, SELFPAY ==
[2025-08-25 10:17] VITALS: BMI 40.3
--- NOTE | 2025-08-25 10:20 | NMCV_ITS ---
NM trae perf SPECT r/s* [id number] Snehal Edwards Age: 70 Gender: F : 1955 Exam Date: 08/25/2025 10:41 Ordering Phys: Suzan Ledbetter MD ([email or web address]) Technologist: NIKOLAI Davis Exam Location: [facility] Indications: cp STRESS TEST [facility] IMAGE PROTOCOL Rest/Stress 1 Lexiscan Day Radiopharmaceutical Dose (mCi) Administration Site Administered by Rest: Tc-99m 10.7 IV NIKOLAI Davis Sestamibi Stress:Tc-99m 33 IV NIKOLAI Rivera Sestamibi Rest: 25-Aug-2025 60 Discovery 630 Stress: 25-Aug-2025 30 Discovery 630 0.4mg Lexiscan. Images obtained in supine and prone position. SPECT RESULTS Technical Quality: Good Raw Data Analysis: Normal Image Corrections: No attenuation or motion correction applied Summed Stress Score: 1 Summed Rest Score: 0 Summed Difference Score: 1 PERFUSION FINDINGS SPECT images demonstrate homogeneous tracer distribution throughout the myocardium. FUNCTIONAL RESULTS (calculated via Gated SPECT) Stress Image LV EF (%): 77 Stress EDV (mL):93 TID: 1.04 Stress ESV (mL):21 FUNCTIONAL FINDINGS: There is normal left ventricular systolic function. EF 77%. IMPRESSIONS Myocardial perfusion imaging is normal. Normal left ventricular systolic function, EF 77%. Sharath Pereira MD, FACC (Electronically Signed) Final Date: 25 August 2025 19:33 S
--- NOTE | 2025-08-25 10:20 | ECG_ITS ---
[facility] Test Date: 2025-08-25 Pat Name: Snehal Edwards Department: Room: Gender: Female Home Demonstrator: : 1955 Requested By: Suzan Ledbetter Order Number: [id number] Ortiz MD: Sharath Pereira M.D. Interpretive Statements Procedure: A total of 0.4 mg of Lexiscan was infused over 20 seconds. The stress phase was continued for a total of 5 minutes. Sestamibi was injected 20 seconds after the Lexiscan infusion. Vital signs and ECG findings: Baseline blood pressure 137/80 with a heart rate of 61 bpm. There is was no significant change in blood pressure or heart rate during the stress test. Baseline EKG showed normal sinus rhythm with sinus arrhythmia and mild ST depression in the inferior leads. There was no change in ST or T waves during the stress test. Conclusion: 1. Normal EKG response to Lexiscan infusion 2. No Lexiscan induced chest pain or cardiac arrhythmia. 3. Normal blood pressure and heart rate response. 4. Nuclear myocardial perfusion scan pending; see separate report. Electronically Signed On 08-25-2025 20:16:08 CDT by Sharath Pereira M.D. [email or web address]
[2025-08-25 11:22] VITALS: BP 131/75; PULSE 71
== END 2025-08-25 09:33 | disposition home or self-care (01) ==
PROVIDERS: PCP Family Medicine; Visit Provider Internal Medicine Cardiovascular Disease
DX: Z98.61 Coronary angioplasty status (principal)
CPT/HCPCS: 36415; 78452; 93017; A9500; J2785